=== PATIENT | male | born 1955 | race African-American/Black ===

== ENCOUNTER 2017-01-20 02:00 | Inpatient (IN) | payer MEDICARE ==
--- NOTE | ~2017-01-20 | PN ---
Unit #: [id number] #: [id number] Patient: MARIN RUIZ [id number] [facility] [address] [place] [address] [id number] MR#: [id number] NAME: MARIN RUIZ SR ROOM: P114 Age: 61 Sex: M Admission Date: 01/20/2017 : 1955 Attending Physician: Eliu Don M.D. Admitting Physician: Eliu Don M.D. Primary Care Physician: Christian Walsh NOTES DATE OF SERVICE: 01/22/2017 DISCUSSION Marin was admitted over the weekend due to acute psychosis and complaints of suicidal ideation. Today, he is typically rambling and disorganized, having just got out of the shower but not dried off before putting on his hospital clothes. He continues to insist that he has been "robbed" and makes vague threats to "hit people" with no specific target, plan, or intent. He does request some Seroquel for sleep and I am agreeable to this since he has responded to dual antipsychotic medication in the past. ASSESSMENT Schizophrenia, paranoid type. PLAN Add Seroquel 100 mg at bedtime and continue reintroduction of Geodon. Dictated by... Eliu Don M.D. /julietl TD: 01/22/2017 15:59 JOB #: [id number] RACHEL DAY NOTES Page 1 of 1 X Eliu Don MD X PROGRESS NOTE
--- NOTE | ~2017-01-20 | DS ---
Unit #: [id number] #: [id number] Patient: MARIN RUIZ SR [id number] [place] [address] [id number] MR#: [id number] NAME: MARIN RUIZ SR ROOM: P114 Age: 61 Sex: M Admission Date: 01/20/2017 : 1955 Discharge Date: 01/23/2017 Attending Physician: Eliu Don M.D. Primary Care Physician: Jerome Donaldson M.D. DISCHARGE SUMMARY REASON FOR ADMISSION Marin is a 61-year-old man, well known to me from previous admissions with history of schizophrenia. He was decompensated in the outpatient setting and he could not contract for safety. He was readmitted. DIAGNOSTIC STUDIES LABORATORY RESULTS: Please see hospital chart. HOSPITAL COURSE The patient was admitted and placed back on Geodon and Depakote. Seroquel was later added for sleep, as this patient has a history of poor response to a single antipsychotic agent, he was typically rambling and paranoid throughout the hospitalization, and was transferred to [address] [place] [address] for a safer milieu. On the date of discharge, he stated that "my mother has ," although, there was no external confirmation of his family tragedy. He insisted on discharge, and as this patient has a history of poor response to extended the hospitalization, his request was granted. DISCHARGE DIAGNOSES AXIS I: Schizophrenia, paranoid type; history of cocaine abuse; history of alcohol abuse. AXIS II: No diagnosis. AXIS III: Chronic obstructive pulmonary disease and hypothyroidism. AXIS IV: AXIS V: DISCHARGE INSTRUCTIONS Follow up with [facility]. DISCHARGE MEDICATIONS Geodon 60 mg b.i.d. with food for psychosis, Seroquel 100 mg at bedtime for insomnia, and Depakote ER 500 mg twice at bedtime for mood stability. CONDITION AT DISCHARGE Fair. PROGNOSIS Fair. DIET AND ACTIVITY Ad lukas. Unit #: [id number] #: [id number] Patient: MARIN RUIZ SR Dictated by... Eliu Don M.D. MRH/tamika TD: 01/23/2017 16:02 JOB #: [id number] DISCHARGE SUMMARY Page 1 of 1 X Eliu Don MD DISCHARGE SUMMARY
--- NOTE | ~2017-01-20 | PA ---
Unit #: [id number] #: [id number] Patient: ALEXEI RUIZ [id number] [facility] [address] [place] [address] [id number] Radha MR#: [id number] NAME: ALEXEI RUIZ SR ROOM: P114 Age: 61 Sex: M Admission Date: 01/20/2017 : 1955 Date of Assessment: Attending Physician: Eliu Don M.D. Admitting Physician: Eliu Don M.D. Primary Care Physician: Jerome Donaldson M.D. PSYCHIATRIC ASSESSMENT INFORMANTS The patient considered fairly reliable; medical records reliable. CHIEF COMPLAINT "None of your business." IDENTIFYING INFORMATION This patient is a 61-year-old male with several previous admissions to this hospital. HISTORY OF PRESENT ILLNESS This patient has multiple psychiatric admissions at [facility]. He typically voices suicidal ideations. His most recent admission was 09/20/2016. The patient is resting in bed and refused to answer many of my questions. I had received a call that he was agitated and we did restart Geodon 60 mg b.i.d. I did review his history of previous psychiatric assessments and there have been basically no changes. PAST PSYCHIATRIC HISTORY Reviewed without changes. PAST MEDICAL HISTORY History of traumatic injuries to the jaw and ribs. HOME MEDICATIONS Robaxin, diclofenac, Geodon, Seroquel and Synthroid. ALLERGIES Milk. FAMILY HISTORY Noncontributory. SOCIAL HISTORY Reviewed without changes. MENTAL STATUS EXAMINATION This patient is a 61-year-old male, who is fairly irritable and uncooperative. He refused to answer many of my questions. He has more than likely been noncompliant with his medications. There were no SI or HI reported; however, he answered very few of my questions and did not want to speak with me. Unit #: [id number] #: [id number] Patient: ALEXEI RUIZ SR ASSETS AND LIABILITIES The patient's assets include voluntary admission to the hospital with knowledge of community resources. Liabilities include ongoing homelessness and lack of resources. ADMITTING DIAGNOSES AXIS I: Chronic paranoid schizophrenia. AXIS II: Deferred. AXIS III: Hypothyroidism, history of broken ribs. AXIS IV: AXIS V: PSYCHIATRIC TREATMENT PLAN This patient was admitted to [facility] for safety and stabilization. We did restart Geodon 60 mg b.i.d. We will order H and P and laboratory studies. He will attend group therapy and unit activities. He may meet with social work services or keycase assembler to discuss community resources available for his ongoing homelessness and the need for outpatient psychiatric care. ESTIMATED LENGTH OF STAY 5 to 7 days. Dictated by... Gloria Light A.P.R.N. for Eliu Don M.D. HERB/julietl TD: 01/28/2017 00:36 JOB #: [id number] PSYCHIATRIC ASSESSMENT Page 1 of 1 X Gloria Light X PSYCHIATRIC ASSESSMENT
--- NOTE | ~2017-01-20 | HP ---
Unit #: [id number] #: [id number] Patient: ALEXEI RUIZ SR [id number] [place] [address] [id number] MR#: [id number] NAME: ALEXEI RUIZ SR ROOM: [facility] Age: 61 Sex: M Admission Date: 01/20/2017 : 1955 Attending Physician: Eliu Dno M.D. Admitting Physician: Eliu Don M.D. Primary Care Physician: Jerome Donaldson M.D. HISTORY AND PHYSICAL HISTORY OF PRESENT ILLNESS The patient his a 61-year-old male admitted to [address] [place] [address] on 01/20/2017 for psychosis and noncompliance with medications. The patient was actively psychotic when I came to see him. He would not answer my questions appropriately and kept walking away from me. Much of his information was retrieved from chart. PAST MEDICAL HISTORY 1. COPD 2. Hypertension 3. Degenerative disc disease 4. Hypothyroidism 5. Asthma PAST SURGICAL HISTORY Jaw surgery SOCIAL HISTORY He is disabled and homeless. He smokes one pack of cigarettes daily. FAMILY MEDICAL HISTORY Noncontributory. ALLERGIES No known drug allergies. CURRENT MEDICATIONS The patient is not on any home medications. REVIEW OF SYSTEMS Unable to obtain. PHYSICAL EXAM She refused everything except blood pressure and heart rate. Blood pressure was 125/85. Heart rate was 92. The patient is awake, alert and oriented in no acute distress. The rest of his exam cannot be obtained. IMPRESSION 1. Psychiatric admission. 2. COPD. 3. Hypertension. 4. Degenerative disc disease. 5. Hypothyroidism. Unit #: [id number] #: [id number] Patient: ALEXEI RUIZ SR 6. Asthma. 7. Nicotine dependence. RECOMMENDATIONS Psychiatric per psychiatrist. MEDICAL: No contraindication to participate in facility activities. MEDICAL PROGNOSIS Good. MEDICAL CONDITION Stable. Dictated by... Sissy Velazquez/natanael TD: 01/21/2017 01:42 JOB #: [id number] HISTORY AND PHYSICAL Page 1 of 1 X WILY YAO APRN X HISTORY AND PHYSICAL
[~2017-01-20 02:00] MED LIST: FLEXERIL10 MG PO; SEROQUEL PO
[2017-01-21 15:40] LABS: BASOPHIL% 0.4 % (0-2.5); EOSINOPHIL# 0.2 X10e3 (0-0.7); EOSINOPHIL% 3.4 % (0.0-7.0); HEMATOCRIT 40.5 % (38.0-50.0); HEMOGLOBIN 13.3 gm/dL (13.0-16.0); LYMPHOCYTE# 2.4 X10e3 (1.0-3.5); LYMPHOCYTE% 49.7 % (17.0-45.0); MEAN CELL VOLUME 84.4 FL (83-96); MEAN CORPUSCULAR HEMOGLOBIN 27.8 PG (28-34); MEAN CORPUSCULAR HGB CONC 32.9 g/dL (30-36); MEAN PLATELET VOLUME 9.2 FL (6.5-11.5); MONOCYTE# 0.6 X10e3 (0-1.0); MONOCYTE% 12.5 % (3.0-12.0); NEUTROPHIL# 1.7 X10e3 (1.5-7.1); PLATELET COUNT 147 X10e3 (140-420); RED CELL DISTRIBUTION WIDTH 14.2 % (11.0-15.5); WHITE BLOOD COUNT 4.9 X10e3 (4.0-10.5)
[2017-01-21 15:41] LABS: DIFF IND NO
[2017-01-21 15:53] LABS: ALBUMIN SERUM 3.6 g/dL (3.5-5.0); BILIRUBIN,TOTAL 0.4 mg/dL (0.2-2.0); CALCIUM SERUM 8.5 mg/dL (8.4-10.2); CREATININE SERUM 0.9 mg/dL (0.6-1.4); GLOM FILT RATE Estimated 107.2 mL/min (>60); POTASSIUM 4.7 mmol/L (3.5-5.1); PROTEIN TOTAL SERUM 7.2 g/dL (6.0-8.3)
[2017-01-22 10:07] LABS: URINE APPEARANCE CLEAR; URINE BILIRUBIN NEG (NEG); URINE BLOOD NEG (NEG); URINE COLOR DK YELLOW; URINE GLUCOSE NEG (NEG); URINE KETONE TRACE (NEG); URINE LEUKOCYTE ESTERASE TRACE (NEG); URINE NITRATE NEG (NEG); URINE PROTEIN NEG (NEG); URINE SPECIFIC GRAVITY 1.024 (1.003-1.035)
[2017-01-22 10:10] LABS: URBCS1 AUWI 0-2 /[HPF] (0-2); URINE BACTERIA AUWI NEG (NEGATIVE); URINE SQUAMOUS EPITHELIAL CELL NONE SEEN /[HPF]; UWBCS1 AUWI 0-2 (0-5)
[2017-01-22 11:22] LABS: AMPHETAMINE NEG (NEG); BARBITURATES NEG (NEG); BENZODIAZEPINES NEG (NEG); COCAINE NEG (NEG); MARIJUANA NEG (NEG); OPIATES NEG (NEG); TRICYCLIC ANTIDEPRESSANTS NEG (NEG); U METHADONE NEG (NEG)
== END 2017-01-23 11:00 | disposition home or self-care (01) | DRG 885 ==
LOC: P2L 03:28 → P1S 01-22 14:58
PROVIDERS: Psychiatry & Neurology Psychiatry
DX: F20.0 Paranoid schizophrenia (principal); R45.851 Suicidal ideations; Z91.14 Patient's other noncompliance with medication regimen; J44.9 Chronic obstructive pulmonary disease, unspecified; E03.9 Hypothyroidism, unspecified; I10 Essential (primary) hypertension; Z59.0 Homelessness
CPT/HCPCS: 80053; 80307; 81003; 85025; J3486

== ENCOUNTER 2017-02-11 15:00 | Inpatient (IN) | payer MEDICARE ==
--- NOTE | ~2017-02-11 | HP ---
Unit #: [id number] #: [id number] Patient: MARIN RUIZ [id number] [place] [address] [id number] MR#: [id number] NAME: MARIN RUIZ SR ROOM: [facility] Age: 61 Sex: M Admission Date: 02/11/2017 : 1955 Attending Physician: Eliu Don M.D. Admitting Physician: Eliu Don M.D. Primary Care Physician: Jerome Donaldson M.D. HISTORY AND PHYSICAL NOTE Marin is a 61 year old admitted to [address] [place] [address] with psychosis and again noncompliance of his medication. He is well known to us and has had numerous admissions to this facility. The patient was seen and H and P dated 01/20/2017 was reviewed. This is current. No changes. Please see H and P dated 01/20/2017. Dictated by... Herminia Staley P.A.-C. for Christian Ritchie/natanael TD: 02/13/2017 00:50 JOB #: [id number] HISTORY AND PHYSICAL Page 1 of 1 X Herminia Staley HISTORY AND PHYSICAL
--- NOTE | ~2017-02-11 | PA ---
Unit #: [id number] #: [id number] Patient: MARIN RUIZ [id number] [place] [address] [id number] I MR#: [id number] NAME: MARIN RUIZ SR ROOM: P266 Age: 61 Sex: M Admission Date: 02/11/2017 : 1955 Date of Assessment: 02/12/2017 Attending Physician: Eliu Don M.D. Admitting Physician: Eliu Don M.D. Primary Care Physician: Jerome Donalsdon M.D. PSYCHIATRIC ASSESSMENT DATE OF SERVICE 02/12/2017. INFORMANTS The patient, reliable; OLOP, reliable. CHIEF COMPLAINT Suicidal ideation and psychosis. HISTORY OF PRESENT ILLNESS Marin is a 61-year-old man, well known to us from multiple admissions to this facility with a history of schizophrenia and chronic noncompliance outside of the hospital. He came into the assessment center today in a clearly decompensated and agitated state. He was disheveled, disorganized in his speech, and threatening to himself and others. He was admitted for stabilization. PAST PSYCHIATRIC HISTORY Multiple admissions to this facility, the last in January of this year. PAST MEDICAL HISTORY History of traumatic injuries and hypothyroidism. SOCIAL HISTORY The patient is chronically homeless and has minimal psychosocial support. Please see previous assessments. MEDICATIONS Robaxin, diclofenac, Geodon, Seroquel, and Synthroid. ALLERGIES The patient has a lactose intolerance. SUBSTANCE USE HISTORY The patient has erratic history of chemical dependency, but none currently. MENTAL STATUS EXAMINATION Marin presented as a disheveled man, appearing older than his stated age. His speech was dysarthric, rambling, and hard to understand. Musculoskeletal examination was calm. His mood was irritable with a congruent affect. He was alert and oriented to person, location, and situation. Memory and concentration were fair. Thought processes were rambling and illogical. He reported suicidal ideation, but contracted for Unit #: [id number] #: [id number] Patient: MARIN RUIZ safety. Insight and judgment, fair. Fund of knowledge and abstraction, poor. ASSETS AND LIABILITIES The patient knows local resources and presents voluntarily for treatment. Liabilities include noncompliance and homelessness. ADMITTING DIAGNOSES AXIS I: Schizophrenia, paranoid type; history of cocaine abuse; history of alcohol abuse. AXIS II: No diagnosis. AXIS III: Hypothyroidism and chronic obstructive pulmonary disease. AXIS IV: AXIS V: PSYCHIATRIC PLAN Emit was readmitted and placed back on his previous medications which were Geodon for psychosis and Seroquel for sleep. Depakote was also added for mood stability. He will enroll in reality based psychotherapy activities. TREATMENT GOALS Resolution of psychosis, improvement in insight, and improvement in coping skills. DISCHARGE PLANNING Follow up with [facility]. ESTIMATED LENGTH OF STAY 5 days. Dictated by... Eliu Don M.D. POLINA/tamika TD: 02/15/2017 09:01 JOB #: [id number] PSYCHIATRIC ASSESSMENT Page 1 of 1 X Eliu Don MD X PSYCHIATRIC ASSESSMENT
--- NOTE | ~2017-02-11 | DS ---
Unit #: [id number] #: [id number] Patient: MARIN RUIZ SR [id number] [place] [address] [id number] MR#: [id number] NAME: MARIN RUIZ SR ROOM: P266 Age: 61 Sex: M Admission Date: 02/11/2017 : 1955 Discharge Date: 02/13/2017 Attending Physician: Eliu Don M.D. Primary Care Physician: Jerome Donaldson M.D. DISCHARGE SUMMARY REASON FOR ADMISSION Marin is a 61-year-old man, well known to me from multiple admissions with diagnosis of schizophrenia. He has a history of chronic noncompliance and homelessness outside of the hospital. He came in an acutely decompensated state with disheveled appearance, disorganized speech, and threatening harm to himself and others. He was admitted for stabilization. DIAGNOSTIC STUDIES LABORATORY RESULTS: Please see hospital chart. HOSPITAL COURSE The patient was admitted and placed back on Geodon for psychosis with the addition of Seroquel for sleep. This treatment of second generation antipsychotics is the only one that has been reasonably successful for the patient in the past. Depakote was also restarted for mood stability, although this has been more questionable. He was disheveled and somewhat disorganized throughout the hospitalization, but not hostile or aggressive. On the second day of his hospitalization, despite his ongoing bizarre appearance and short time in the hospital, he insisted on discharge and stated that he would continue to comply with treatment outside of the hospital. At this point, he was not eligible for involuntary hospitalization, and given his chronic difficulties with psychiatric compliance outside of the hospital and chronic homelessness, he was discharged at his request. DISCHARGE DIAGNOSES AXIS I: Schizophrenia, paranoid type; history of cocaine abuse; history of alcohol abuse. AXIS II: No diagnosis. AXIS III: Chronic obstructive pulmonary disease, hypothyroidism. AXIS IV: AXIS V: DISCHARGE INSTRUCTIONS Follow up with [facility]. DISCHARGE MEDICATIONS Geodon 60 mg b.i.d. for psychosis, Depakote ER 500 mg b.i.d. for mood stability, and Seroquel 100 mg at bedtime as needed for insomnia. Primary care medicine was Proventil inhaler 2 puffs every 4 hours as needed for Unit #: [id number] #: [id number] Patient: MARIN RUIZ SR shortness of air. CONDITION AT DISCHARGE Fair. PROGNOSIS Fair. DIET AND ACTIVITY Ad lukas. Dictated by... Christian Perez/tamika TD: 02/24/2017 02:38 JOB #: [id number] DISCHARGE SUMMARY Page 1 of 1 X Eliu Don MD X DISCHARGE SUMMARY
[2017-02-13 13:51] LABS: URINE APPEARANCE CLEAR; URINE BILIRUBIN NEG (NEG); URINE BLOOD NEG (NEG); URINE COLOR YELLOW; URINE GLUCOSE NEG (NEG); URINE KETONE NEG (NEG); URINE LEUKOCYTE ESTERASE NEG (NEG); URINE NITRATE NEG (NEG); URINE PH 6.5 (5-8); URINE PROTEIN NEG (NEG); URINE SPECIFIC GRAVITY 1.004 (1.003-1.035)
[2017-02-13 13:59] LABS: AMPHETAMINE NEG (NEG); BARBITURATES NEG (NEG); BENZODIAZEPINES NEG (NEG); COCAINE NEG (NEG); MARIJUANA NEG (NEG); OPIATES NEG (NEG); TRICYCLIC ANTIDEPRESSANTS NEG (NEG); U METHADONE NEG (NEG)
== END 2017-02-13 12:30 | disposition home or self-care (01) | DRG 885 ==
LOC: P2L 15:18
PROVIDERS: Nurse Practitioner Psychiatric/Mental Health
DX: F20.0 Paranoid schizophrenia (principal); Z91.19 Patient's noncompliance with other medical treatment and regimen; I10 Essential (primary) hypertension; J44.9 Chronic obstructive pulmonary disease, unspecified; E03.9 Hypothyroidism, unspecified; J45.909 Unspecified asthma, uncomplicated; F17.210 Nicotine dependence, cigarettes, uncomplicated; Z59.0 Homelessness
CPT/HCPCS: 80307; 81003